=== PATIENT | female | born 1940 | race African-American/Black ===

== ENCOUNTER 2019-12-05 14:37 | Inpatient (IN) | payer MEDICARE ==
[2019-12-05] MEDS ORDERED: Maalox 30 mL Cup PO PRN (19:09)
[2019-12-05] MEDS ORDERED: Magnesium Hydroxide (MOM) 30 mL UDC PO PRN (19:09)
[2019-12-05] MEDS ORDERED: Fleet Enema 135 mL RC PRN (22:20)
[2019-12-06] MEDS: guaiFENesin 200 MG/10 ML UDC PO SCH ×4 (00:01→17:19)
[2019-12-06] MEDS: Multivitamin Tab PO SCH (09:06)
[2019-12-06] MEDS: Enoxaparin 40 mg/0.4 mL 0.4mL Syr SUBQ SCH (09:07)
[2019-12-06] MEDS: [UNRECOGNIZED DRUG - OTHER] TP SCH (09:07)
--- NOTE | 2019-12-06 18:06 | History & Physical ---
ADMIT DATE: 12/06/2019 CHIEF COMPLAINT: Medical evaluation in a patient who is admitted. HISTORY OF PRESENT ILLNESS: This is an 79-year-old female who was transferred from [facility], who apparently was having increase of agitation and refusing medications at the SNF. The patient was also recently discharged from [facility] due to status post fall and having a closed fracture of the pubic ramus. Patient is medically clear. PAST MEDICAL HISTORY: Dementia, status post fall, nondisplaced right inferior ramus fracture. ALLERGIES: No drug allergies. HOME MEDICATIONS: See medication list. FAMILY HISTORY: Noncontributory. REVIEW OF SYSTEMS: GENERAL: Denies any fevers and chills. CARDIOVASCULAR: Denies chest pain. RESPIRATORY: Denies shortness of breath. GASTROINTESTINAL: Denies nausea, vomiting, abdominal pain. GENITOURINARY: Denies increased frequency. NEUROLOGIC: No dysphagia or syncope. All other systems are reviewed. PHYSICAL EXAMINATION: EXTREMITIES: The patient is well-developed, well-nourished, awake, alert with some confusion, in no apparent distress. VITAL SIGNS: Temperature 97.6, heart rate 90, blood pressure 121/65, respirations 20, O2 98%. HEENT: Head; normocephalic, atraumatic. NECK: Supple. No mass. LUNGS: Clear bilaterally. HEART: Regular rate and rhythm. ABDOMEN: Soft, nontender. EXTREMITIES: No edema noted. ASSESSMENT: Status post recent fall with nondisplaced right inferior ramus fracture, dementia, history of falls, agitation. PLAN: Fall precautions will be initiated. Continue patient's home medications. We will continue to follow this patient. Thank you for this consultation. JOB# [id number]
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
[2019-12-07] MEDS: guaiFENesin 200 MG/10 ML UDC PO SCH ×4 (00:30→17:07)
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
[2019-12-07] MEDS: Enoxaparin 40 mg/0.4 mL 0.4mL Syr SUBQ SCH (08:24)
[2019-12-07] MEDS: Multivitamin Tab PO SCH (08:24)
[2019-12-07] MEDS: [UNRECOGNIZED DRUG - OTHER] TP SCH ×2 (10:48→17:08)
--- NOTE | 2019-12-07 12:38 | Internal Medicine Prog Note ---
Internal Medicine Subjective - Subjective Service Date: 12/07/19 Patient seen and examined:: with staff Patient is:: awake, verbal, derek chair Per staff patient has:: tolerating meds Internal Medicine Objective - Physical Exam Vitals and I&O: Vital Signs Temp 98.1 F 12/07/19 06:00 Pulse 61 12/07/19 06:00 Resp 19 12/07/19 06:00 BP 160/81 12/07/19 06:00 Pulse Ox 99 12/07/19 06:00 Intake & Output 12/06/19 12/07/19 12/07/19 18:59 06:59 18:59 Intake Total 950 300 Balance 950 300 Intake: Oral 950 300 Other: # Voids 1 # Bowel Movements 0 Active Medications: Current Medications Acetaminophen (Tylenol) 650 mg PO Q4H PRN PRN Reason: Pain (Mild 1-3) Stop: 02/03/20 19:08 Al Hydrox/Mg Hydrox/Simethicone (Maalox) 30 ml PO Q4HR PRN PRN Reason: GI DISTRESS Stop: 02/03/20 19:08 Bisacodyl (Dulcolax 10 Mg Supp) 10 mg RC Q24HR PRN PRN Reason: Constipation Stop: 02/03/20 22:19 Enoxaparin Sodium (Lovenox) 40 mg SUBQ DAILY [facility] Stop: 02/04/20 08:59 Last Admin: 12/07/19 08:24 Dose: 40 mg Guaifenesin (Robitussin) 200 mg PO Q6HR [facility] Stop: 12/09/19 00:00 Last Admin: 12/07/19 11:06 Dose: 200 mg Lorazepam (Ativan) 0.5 mg PO Q4HR PRN; Protocol PRN Reason: Anxiety Stop: 01/04/20 19:08 Magnesium Hydroxide (Milk Of Magnesia) 30 ml PO HS PRN PRN Reason: Constipation Miscellaneous (Mineral Oil/Hydrophil Petrolat [Aquaphor Healing Ointment]) 1 applic TP BID [facility] Stop: 02/04/20 08:59 Last Admin: 12/07/19 10:48 Dose: Not Given Multivitamins/Vitamin C (Theragran) 1 tab PO DAILY [facility] Stop: 02/04/20 08:59 Last Admin: 12/07/19 08:24 Dose: 1 tab Risperidone (Risperdal) 0.5 mg PO BID YAYO; Protocol Stop: 02/05/20 08:59 Last Admin: 12/07/19 08:24 Dose: 0.5 mg Sodium Phosphate (Fleet Enema) 135 ml RC Q24HR PRN PRN Reason: bowel management Stop: 02/03/20 22:19 General: alert HEENT: NC/AT, PERRLA Neck: Supple Lungs: CTAB Cardiovascular: RRR, Normal S1, Normal S2, without murmur Abdomen: soft, non-tender, non-distended Extremities: excoriation Neurological: alert Internal Medicine Assmt/Plan - Assessment Assessment: ASSESSMENT: Status post recent fall with nondisplaced right inferior ramus fracture, dementia, history of falls, agitation. - Plan Plan: PLAN: Fall precautions will be initiated. Continue patient's home medications. We will continue to follow this patient.
[2019-12-08] MEDS: guaiFENesin 200 MG/10 ML UDC PO SCH ×5 (00:22→17:02)
[2019-12-08] MEDS: Multivitamin Tab PO SCH ×2 (08:19→09:06)
[2019-12-08] MEDS: Enoxaparin 40 mg/0.4 mL 0.4mL Syr SUBQ SCH ×3 (08:20→12:13)
[2019-12-08] MEDS: [UNRECOGNIZED DRUG - OTHER] TP SCH ×2 (08:21→16:47)
--- NOTE | 2019-12-08 12:41 | Internal Medicine Prog Note ---
Internal Medicine Subjective - Subjective Patient seen and examined:: with staff, chart reviewed, other (chart reviewed) Patient is:: awake, verbal, derek chair Per staff patient has:: unstable gait, tolerating meds Internal Medicine Objective - Physical Exam Vitals and I&O: Vital Signs Temp 0 F 12/08/19 06:53 Pulse 80 12/07/19 20:32 Resp 20 12/07/19 20:32 BP 134/68 12/07/19 20:32 Pulse Ox 95 12/07/19 20:32 Intake & Output 12/07/19 12/08/19 12/08/19 18:59 06:59 18:59 Intake Total 950 240 Output Total 1 Balance 950 239 Intake: Oral 950 240 Output: Urine/Stool Mix 1 Other: # Voids 3 3 # Bowel Movements 0 0 Active Medications: Current Medications Acetaminophen (Tylenol) 650 mg PO Q4H PRN PRN Reason: Pain (Mild 1-3) Stop: 02/03/20 19:08 Al Hydrox/Mg Hydrox/Simethicone (Maalox) 30 ml PO Q4HR PRN PRN Reason: GI DISTRESS Stop: 02/03/20 19:08 Bisacodyl (Dulcolax 10 Mg Supp) 10 mg RC Q24HR PRN PRN Reason: Constipation Stop: 02/03/20 22:19 Enoxaparin Sodium (Lovenox) 40 mg SUBQ DAILY [facility] Stop: 02/04/20 08:59 Last Admin: 12/08/19 12:13 Dose: 40 mg Guaifenesin (Robitussin) 200 mg PO Q6HR [facility] Stop: 12/09/19 00:00 Last Admin: 12/08/19 11:54 Dose: Not Given Lorazepam (Ativan) 0.5 mg PO Q4HR PRN; Protocol PRN Reason: Anxiety Stop: 01/04/20 19:08 Magnesium Hydroxide (Milk Of Magnesia) 30 ml PO HS PRN PRN Reason: Constipation Miscellaneous (Mineral Oil/Hydrophil Petrolat [Aquaphor Healing Ointment]) 1 applic TP BID [facility] Stop: 02/04/20 08:59 Last Admin: 12/08/19 08:21 Dose: Not Given Multivitamins/Vitamin C (Theragran) 1 tab PO DAILY [facility] Stop: 02/04/20 08:59 Last Admin: 12/08/19 09:06 Dose: Not Given Risperidone (Risperdal) 0.5 mg PO BID [facility]O; Protocol Stop: 02/05/20 08:59 Last Admin: 12/08/19 12:12 Dose: 0.5 mg Sodium Phosphate (Fleet Enema) 135 ml RC Q24HR PRN PRN Reason: bowel management Stop: 02/03/20 22:19 General: demented HEENT: NC/AT, PERRLA Neck: Supple Lungs: CTAB Cardiovascular: RRR, Normal S1, Normal S2, without murmur Abdomen: soft, non-tender, non-distended, positive bowel sound Extremities: excoriation Neurological: alert Internal Medicine Assmt/Plan - Assessment Assessment: ASSESSMENT: Status post recent fall with nondisplaced right inferior ramus fracture, dementia, history of falls, agitation. - Plan Plan: - Plan Plan: PLAN: Fall precautions will be initiated. Continue patient's home medications. We will continue to follow this patient. [facility]
[2019-12-08 16:08] VITALS: BP 159/92
[2019-12-09] MEDS: guaiFENesin 200 MG/10 ML UDC PO SCH (00:22)
--- NOTE | 2019-12-09 03:07 | Progress Notes ---
DATE: 12/08/2019 SUBJECTIVE: The patient is currently in the Geropsych Unit, still fighting with staff, somewhat confused, history of dementia. The patient is here because of aggressive episodes, somewhat hyperreligious. Patient with good family support. Still unruly per staff. Medications were reviewed, currently on a small dose of Risperdal. We will consider dosing of Namenda. [facility]# [id number]
[2019-12-09] MEDS: Enoxaparin 40 mg/0.4 mL 0.4mL Syr SUBQ SCH (10:03)
[2019-12-09] MEDS: Multivitamin Tab PO SCH (10:03)
--- NOTE | 2019-12-09 12:59 | Internal Medicine Prog Note ---
Internal Medicine Subjective - Subjective Patient seen and examined:: with staff, chart reviewed Patient is:: awake, verbal, derek chair Per staff patient has:: unstable gait, tolerating meds Internal Medicine Objective - Physical Exam Vitals and I&O: Vital Signs Temp 0 F 12/09/19 06:39 Pulse 85 12/08/19 20:43 Resp 19 12/08/19 20:43 BP 133/81 12/08/19 20:43 Pulse Ox 95 12/08/19 20:43 Intake & Output 12/08/19 12/09/19 12/09/19 18:59 06:59 18:59 Intake Total 120 Balance 120 Intake: Oral 120 Other: # Voids 2 3 # Bowel Movements 0 0 Active Medications: Current Medications Acetaminophen (Tylenol) 650 mg PO Q4H PRN PRN Reason: Pain (Mild 1-3) Stop: 02/03/20 19:08 Al Hydrox/Mg Hydrox/Simethicone (Maalox) 30 ml PO Q4HR PRN PRN Reason: GI DISTRESS Stop: 02/03/20 19:08 Bisacodyl (Dulcolax 10 Mg Supp) 10 mg RC Q24HR PRN PRN Reason: Constipation Stop: 02/03/20 22:19 Enoxaparin Sodium (Lovenox) 40 mg SUBQ DAILY [facility] Stop: 02/04/20 08:59 Last Admin: 12/09/19 10:03 Dose: 40 mg Lorazepam (Ativan) 0.5 mg PO Q4HR PRN; Protocol PRN Reason: Anxiety Stop: 01/04/20 19:08 Magnesium Hydroxide (Milk Of Magnesia) 30 ml PO HS PRN PRN Reason: Constipation Multi-Ingredient Cream (Eucerin Cream) 1 appl TP BID [facility] Stop: 02/04/20 08:59 Multivitamins/Vitamin C (Theragran) 1 tab PO DAILY [facility] Stop: 02/04/20 08:59 Last Admin: 12/09/19 10:03 Dose: 1 tab Risperidone (Risperdal) 0.5 mg PO BID [facility]; Protocol Stop: 02/05/20 08:59 Last Admin: 12/09/19 10:03 Dose: 0.5 mg Sodium Phosphate (Fleet Enema) 135 ml RC Q24HR PRN PRN Reason: bowel management Stop: 02/03/20 22:19 General: demented HEENT: NC/AT, PERRLA Neck: Supple Lungs: CTAB Cardiovascular: RRR, Normal S1, Normal S2, without murmur Abdomen: soft, non-tender, non-distended, positive bowel sound Extremities: excoriation Neurological: alert Internal Medicine Assmt/Plan - Assessment Assessment: ASSESSMENT: Status post recent fall with nondisplaced right inferior ramus fracture, dementia, history of falls, agitation. - Plan Plan: - Plan Plan: PLAN: Fall precautions will be initiated. Continue patient's home medications. We will continue to follow this patient. fall precaution cont on [facility] meds noted Nutritional Asmnt/Malnutr-PDOC - Dietary Evaluation Malnutrition Findings (Please click <Entered> for more info): Nutritional Asmnt/Malnutrition Start: 12/08/19 13: 59 Text: Status: Complete Freq: Protocol: Document 12/08/19 13:59 HEMANT (Rec: 12/08/19 14:01 HEMANT [id number]) Nutritional Asmnt/Malnutrition Patient General Information Nutritional Screening Moderate Risk Diagnosis Psychosis Pertinent Medical Hx/Surgical Hx Dementia, Status post fall, nondisplaced RT inferior ramus fracture Subjective Information Pt is a 79-year-old female admitted on 12/05 d/t agitation and aggressiveness. Pt is eating an estimated 70% of meals Per Meal/Nutrition Activity Record. Dietary is currently providing an estimated 1700 kcals and 90 gm Pro, per Pt PO intake this is providing an estimated 1200 kcals and 60gm Pro to meet 100 % kcal and 100% Pro needs. Anthropometrics HT: 410 WT: 138 LB (62.73 kg) ABW:107 LB (48.64 kg) BMI: 28.84 (Overweight) GI/ Skin Integrity GI: WNL, Soft, non-tender BM: Not Noted I/O: 1190/1 (+1189) Skin: WNL, Intact Jamie: 21 Diet Order: Cardiac Estimated Energy Needs: ( Geriatric, ABW) 2423-5957 kcals (25-30 kcals/ kg) 50-60g Pro (1.0-1.2 g/kg) 6307-2000 ml (25-30 ml/kg) Current Diet Order/ Nutrition Support Cardiac Pertinent Medications Maalox (PRN), Dulcolax (PRN), MOM (PRN), Theragran, Fleet Enema (PRN) Pertinent Labs 12/05: BUN/Cr 24/0.84, Glucose 104, Alb 3.2 11/29: Glucose 109, BUN/Cr 24/1 .12 Nutritional Hx/Data Height 1.47 m Height (Calculated Centimeters) 147.3 Current Weight (lbs) 62.596 kg Weight (Calculated Kilograms) 62.6 Weight (Calculated Grams) 34850.7 [place] Body Weight 96 LB (43.64 kg) % [place] Body Weight 144 Body Mass Index (BMI) 28.8 Weight Status Overweight GI Symptoms Last BM Not Noted Skin Integrity/Comment: Skin: WNL, Intact Jamie: 21 Current %PO Fair (50-74%) Estimated Nutritional Goals BEE in Kcals: Adj wt of IBW Calories/Kcals/Kg 25-30 Kcals Calculated 2756-7004 Protein: Adj wt of IBW Protein g/k.0-1.2 Protein Calculated 50-60 Fluid: ml 9795-1997 ml (25-30 ml/kg) Nutritional Problem No current Nutrition Prob Problem No nutrition diagnosis at this time. Etiology N/A Signs/Symptoms: N/A Malnutrition Related to Morbid Obesity Malnutrition related to morbid obesity No Intervention/Recommendation Comments Continue Cardiac diet as tolerated. Expected Outcomes/Goals Expected Outcomes/Goals 1.PO intake to continue to meet >75% of estimated nutritional needs. 2.Monitor PO intake, wt, nutrition related labs, and skin integrity. 3.F/U as low risk in 7-10 days , 12/15-12/18
[2019-12-09] MEDS: Eucerin Cream 16 oz Jar TP SCH (18:11)
--- NOTE | 2019-12-10 08:49 | Progress Notes ---
DATE: 12/09/2019 An 79-year-old female, currently in the hospital, very confused, disoriented, good family support. Still loud sometimes aggressive, trying to grab onto people as ____, still unruly, ongoing agitation, striking out behaviors per staff. Medications were noted. PLAN: We will continue to monitor, slowly adjust and titrate medications. JOB# [id number]
[2019-12-10] MEDS: Enoxaparin 40 mg/0.4 mL 0.4mL Syr SUBQ SCH (10:00)
[2019-12-10] MEDS: Eucerin Cream 16 oz Jar TP SCH ×2 (10:00→17:57)
[2019-12-10] MEDS: Multivitamin Tab PO SCH (10:00)
--- NOTE | 2019-12-10 13:30 | Internal Medicine Prog Note ---
Internal Medicine Subjective - Subjective Patient seen and examined:: with staff, chart reviewed Patient is:: awake, verbal, derek chair Per staff patient has:: unstable gait, tolerating meds Internal Medicine Objective - Physical Exam Vitals and I&O: Vital Signs Temp 97 F 12/10/19 06:34 Pulse 70 12/10/19 06:34 Resp 18 12/10/19 06:34 BP 159/88 12/10/19 06:34 Pulse Ox 97 12/10/19 06:34 Intake & Output 12/09/19 12/10/19 12/10/19 18:59 06:59 18:59 Intake Total 120 Balance 120 Intake: Oral 120 Other: # Voids 3 Active Medications: Current Medications Acetaminophen (Tylenol) 650 mg PO Q4H PRN PRN Reason: Pain (Mild 1-3) Stop: 02/03/20 19:08 Al Hydrox/Mg Hydrox/Simethicone (Maalox) 30 ml PO Q4HR PRN PRN Reason: GI DISTRESS Stop: 02/03/20 19:08 Bisacodyl (Dulcolax 10 Mg Supp) 10 mg RC Q24HR PRN PRN Reason: Constipation Stop: 02/03/20 22:19 Enoxaparin Sodium (Lovenox) 40 mg SUBQ DAILY [facility] Stop: 02/04/20 08:59 Last Admin: 12/10/19 10:00 Dose: 40 mg Lorazepam (Ativan) 0.5 mg PO Q4HR PRN; Protocol PRN Reason: Anxiety Stop: 01/04/20 19:08 Magnesium Hydroxide (Milk Of Magnesia) 30 ml PO HS PRN PRN Reason: Constipation Multi-Ingredient Cream (Eucerin Cream) 1 appl TP BID [facility] Stop: 02/04/20 08:59 Last Admin: 12/10/19 10:00 Dose: 1 appl Multivitamins/Vitamin C (Theragran) 1 tab PO DAILY [facility] Stop: 02/04/20 08:59 Last Admin: 12/10/19 10:00 Dose: Not Given Risperidone (Risperdal) 0.5 mg PO BID [facility]; Protocol Stop: 02/05/20 08:59 Last Admin: 12/10/19 10:00 Dose: Not Given Sodium Phosphate (Fleet Enema) 135 ml RC Q24HR PRN PRN Reason: bowel management Stop: 02/03/20 22:19 General: demented HEENT: NC/AT, PERRLA Neck: Supple Lungs: CTAB Cardiovascular: RRR, Normal S1, Normal S2, without murmur Abdomen: soft, non-tender, non-distended, positive bowel sound Extremities: excoriation Neurological: alert Internal Medicine Assmt/Plan - Assessment Assessment: ASSESSMENT: Status post recent fall with nondisplaced right inferior ramus fracture, dementia, history of falls, agitation. - Plan Plan: - Plan Plan: PLAN: Fall precautions will be initiated. Continue patient's home medications. We will continue to follow this patient. [facility] Nutritional Asmnt/Malnutr-PDOC - Dietary Evaluation Malnutrition Findings (Please click <Entered> for more info): Nutritional Asmnt/Malnutrition Start: 12/08/19 13: 59 Text: Status: Complete Freq: Protocol: Document 12/08/19 13:59 HEMANT (Rec: 12/08/19 14:01 HEMANT [id number]) Nutritional Asmnt/Malnutrition Patient General Information Nutritional Screening Moderate Risk Diagnosis Psychosis Pertinent Medical Hx/Surgical Hx Dementia, Status post fall, nondisplaced RT inferior ramus fracture Subjective Information Pt is a 79-year-old female admitted on 12/05 d/t agitation and aggressiveness. Pt is eating an estimated 70% of meals Per Meal/Nutrition Activity Record. Dietary is currently providing an estimated 1700 kcals and 90 gm Pro, per Pt PO intake this is providing an estimated 1200 kcals and 60gm Pro to meet 100 % kcal and 100% Pro needs. Anthropometrics HT: 410 WT: 138 LB (62.73 kg) ABW:107 LB (48.64 kg) BMI: 28.84 (Overweight) GI/ Skin Integrity GI: WNL, Soft, non-tender BM: Not Noted I/O: 1190/1 (+1189) Skin: WNL, Intact Jamie: 21 Diet Order: Cardiac Estimated Energy Needs: ( Geriatric, ABW) 0208-4599 kcals (25-30 kcals/ kg) 50-60g Pro (1.0-1.2 g/kg) 2735-5701 ml (25-30 ml/kg) Current Diet Order/ Nutrition Support Cardiac Pertinent Medications Maalox (PRN), Dulcolax (PRN), MOM (PRN), Theragran, Fleet Enema (PRN) Pertinent Labs 12/05: BUN/Cr 24/0.84, Glucose 104, Alb 3.2 11/29: Glucose 109, BUN/Cr 24/1 .12 Nutritional Hx/Data Height 1.47 m Height (Calculated Centimeters) 147.3 Current Weight (lbs) 62.596 kg Weight (Calculated Kilograms) 62.6 Weight (Calculated Grams) 34883.7 [place] Body Weight 96 LB (43.64 kg) % [place] Body Weight 144 Body Mass Index (BMI) 28.8 Weight Status Overweight GI Symptoms Last BM Not Noted Skin Integrity/Comment: Skin: WNL, Intact Jamie: 21 Current %PO Fair (50-74%) Estimated Nutritional Goals BEE in Kcals: Adj wt of IBW Calories/Kcals/Kg 25-30 Kcals Calculated 6571-0018 Protein: Adj wt of IBW Protein g/k.0-1.2 Protein Calculated 50-60 Fluid: ml 3167-9319 ml (25-30 ml/kg) Nutritional Problem No current Nutrition Prob Problem No nutrition diagnosis at this time. Etiology N/A Signs/Symptoms: N/A Malnutrition Related to Morbid Obesity Malnutrition related to morbid obesity No Intervention/Recommendation Comments Continue Cardiac diet as tolerated. Expected Outcomes/Goals Expected Outcomes/Goals 1.PO intake to continue to meet >75% of estimated nutritional needs. 2.Monitor PO intake, wt, nutrition related labs, and skin integrity. 3.F/U as low risk in 7-10 days , 12/15-12/18
--- NOTE | 2019-12-10 22:03 | Progress Notes ---
DATE: 12/10/2019 SUBJECTIVE: The patient is still combative, agitated, fighting with staff. Ongoing concerns about her ability to be redirected, very aggressive, not taking medications. I will try to switch her over to Depakote. She may need a [place] petition. Fair sleep, sitting in Stephanie chair. Staff having a hard time controlling her behaviors. JOB# [id number]
[2019-12-11] MEDS: Eucerin Cream 16 oz Jar TP SCH ×2 (08:00→16:15)
[2019-12-11] MEDS: Multivitamin Tab PO SCH (08:59)
[2019-12-11] MEDS: Enoxaparin 40 mg/0.4 mL 0.4mL Syr SUBQ SCH (08:59)
--- NOTE | 2019-12-11 15:22 | Internal Medicine Prog Note ---
Internal Medicine Subjective - Subjective Patient seen and examined:: with staff, chart reviewed Patient is:: awake, verbal, derek chair Per staff patient has:: unstable gait, tolerating meds Internal Medicine Objective - Physical Exam Vitals and I&O: Vital Signs Temp 97.2 F 12/11/19 06:00 Pulse 87 12/11/19 06:00 Resp 16 12/11/19 08:00 BP 135/69 12/11/19 08:00 Pulse Ox 98 12/11/19 06:00 Intake & Output 12/10/19 12/11/19 12/11/19 18:59 06:59 18:59 Intake Total 120 Balance 120 Intake: Oral 120 Other: # Voids 2 # Bowel Movements 0 Active Medications: Current Medications Acetaminophen (Tylenol) 650 mg PO Q4H PRN PRN Reason: Pain (Mild 1-3) Stop: 02/03/20 19:08 Al Hydrox/Mg Hydrox/Simethicone (Maalox) 30 ml PO Q4HR PRN PRN Reason: GI DISTRESS Stop: 02/03/20 19:08 Bisacodyl (Dulcolax 10 Mg Supp) 10 mg RC Q24HR PRN PRN Reason: Constipation Stop: 02/03/20 22:19 Divalproex Sodium (Depakote Sprinkle) 250 mg PO Q12HR YAYO; Protocol Stop: 02/08/20 20:59 Last Admin: 12/11/19 08:59 Dose: 250 mg Enoxaparin Sodium (Lovenox) 40 mg SUBQ DAILY [facility] Stop: 02/04/20 08:59 Last Admin: 12/11/19 08:59 Dose: 40 mg Lorazepam (Ativan) 0.5 mg PO Q4HR PRN; Protocol PRN Reason: Anxiety Stop: 01/04/20 19:08 Magnesium Hydroxide (Milk Of Magnesia) 30 ml PO HS PRN PRN Reason: Constipation Multi-Ingredient Cream (Eucerin Cream) 1 appl TP BID [facility] Stop: 02/04/20 08:59 Last Admin: 12/10/19 17:57 Dose: Not Given Multivitamins/Vitamin C (Theragran) 1 tab PO DAILY [facility] Stop: 02/04/20 08:59 Last Admin: 12/11/19 08:59 Dose: 1 tab Sodium Phosphate (Fleet Enema) 135 ml RC Q24HR PRN PRN Reason: bowel management Stop: 02/03/20 22:19 General: demented HEENT: NC/AT, PERRLA Neck: Supple Lungs: CTAB Cardiovascular: RRR, Normal S1, Normal S2, without murmur Abdomen: soft, non-tender, non-distended, positive bowel sound Extremities: excoriation Neurological: alert Internal Medicine Assmt/Plan - Assessment Assessment: ASSESSMENT: Status post recent fall with nondisplaced right inferior ramus fracture, dementia, history of falls, agitation. - Plan Plan: - Plan Plan: PLAN: Fall precautions will be initiated. Continue patient's home medications. We will continue to follow this patient. fall precaution cont on gerichair meds noted Nutritional Asmnt/Malnutr-PDOC - Dietary Evaluation Malnutrition Findings (Please click <Entered> for more info): Nutritional Asmnt/Malnutrition Start: 12/08/19 13: 59 Text: Status: Complete Freq: Protocol: Document 12/08/19 13:59 HEMANT (Rec: 12/08/19 14:01 HEMANT [id number]) Nutritional Asmnt/Malnutrition Patient General Information Nutritional Screening Moderate Risk Diagnosis Psychosis Pertinent Medical Hx/Surgical Hx Dementia, Status post fall, nondisplaced RT inferior ramus fracture Subjective Information Pt is a 79-year-old female admitted on 12/05 d/t agitation and aggressiveness. Pt is eating an estimated 70% of meals Per Meal/Nutrition Activity Record. Dietary is currently providing an estimated 1700 kcals and 90 gm Pro, per Pt PO intake this is providing an estimated 1200 kcals and 60gm Pro to meet 100 % kcal and 100% Pro needs. Anthropometrics HT: 410 WT: 138 LB (62.73 kg) ABW:107 LB (48.64 kg) BMI: 28.84 (Overweight) GI/ Skin Integrity GI: WNL, Soft, non-tender BM: Not Noted I/O: 1190/1 (+1189) Skin: WNL, Intact Jamie: 21 Diet Order: Cardiac Estimated Energy Needs: ( Geriatric, ABW) 1096-2090 kcals (25-30 kcals/ kg) 50-60g Pro (1.0-1.2 g/kg) 6703-9858 ml (25-30 ml/kg) Current Diet Order/ Nutrition Support Cardiac Pertinent Medications Maalox (PRN), Dulcolax (PRN), MOM (PRN), Theragran, Fleet Enema (PRN) Pertinent Labs 12/05: BUN/Cr 24/0.84, Glucose 104, Alb 3.2 11/29: Glucose 109, BUN/Cr 24/1 .12 Nutritional Hx/Data Height 1.47 m Height (Calculated Centimeters) 147.3 Current Weight (lbs) 62.596 kg Weight (Calculated Kilograms) 62.6 Weight (Calculated Grams) 32771.7 [place] Body Weight 96 LB (43.64 kg) % [place] Body Weight 144 Body Mass Index (BMI) 28.8 Weight Status Overweight GI Symptoms Last BM Not Noted Skin Integrity/Comment: Skin: WNL, Intact Jamie: 21 Current %PO Fair (50-74%) Estimated Nutritional Goals BEE in Kcals: Adj wt of IBW Calories/Kcals/Kg 25-30 Kcals Calculated 7201-6156 Protein: Adj wt of IBW Protein g/k.0-1.2 Protein Calculated 50-60 Fluid: ml 8325-8415 ml (25-30 ml/kg) Nutritional Problem No current Nutrition Prob Problem No nutrition diagnosis at this time. Etiology N/A Signs/Symptoms: N/A Malnutrition Related to Morbid Obesity Malnutrition related to morbid obesity No Intervention/Recommendation Comments Continue Cardiac diet as tolerated. Expected Outcomes/Goals Expected Outcomes/Goals 1.PO intake to continue to meet >75% of estimated nutritional needs. 2.Monitor PO intake, wt, nutrition related labs, and skin integrity. 3.F/U as low risk in 7-10 days , 12/15-12/18
--- NOTE | 2019-12-11 19:58 | Progress Notes ---
DATE: 12/11/2019 SUBJECTIVE: The patient was very aggressive yesterday and agitated. I spoke with daughter. Medication adjustments will be made. The issue, the patient has not been very medication compliance, concerns about her compliance issues, refusing medications. I may need to file a [place] petition. Ongoing symptoms, very impulsive, unpredictable. She was very aggressive behaviors. JOB# [id number]
[2019-12-12] MEDS: Multivitamin Tab PO SCH (08:40)
[2019-12-12] MEDS: Enoxaparin 40 mg/0.4 mL 0.4mL Syr SUBQ SCH (08:41)
[2019-12-12] MEDS: Eucerin Cream 16 oz Jar TP SCH ×2 (09:46→16:23)
--- NOTE | 2019-12-12 13:14 | Internal Medicine Prog Note ---
Internal Medicine Subjective - Subjective Patient seen and examined:: with staff, chart reviewed Patient is:: awake, verbal, derek chair Per staff patient has:: unstable gait, tolerating meds Internal Medicine Objective - Physical Exam Vitals and I&O: Vital Signs Temp 98.7 F 12/11/19 20:24 Pulse 89 12/11/19 20:24 Resp 20 12/11/19 20:24 BP 144/66 12/11/19 20:24 Pulse Ox 97 12/11/19 20:24 Intake & Output 12/11/19 12/12/19 12/12/19 18:59 06:59 18:59 Intake Total 800 300 Output Total 1 Balance 800 299 Intake: Oral 800 300 Output: Urine/Stool Mix 1 Other: # Voids 4 1 # Bowel Movements 0 0 Active Medications: Current Medications Acetaminophen (Tylenol) 650 mg PO Q4H PRN PRN Reason: Pain (Mild 1-3) Stop: 02/03/20 19:08 Al Hydrox/Mg Hydrox/Simethicone (Maalox) 30 ml PO Q4HR PRN PRN Reason: GI DISTRESS Stop: 02/03/20 19:08 Bisacodyl (Dulcolax 10 Mg Supp) 10 mg RC Q24HR PRN PRN Reason: Constipation Stop: 02/03/20 22:19 Divalproex Sodium (Depakote Sprinkle) 250 mg PO Q12HR YAYO; Protocol Stop: 02/08/20 20:59 Last Admin: 12/12/19 08:40 Dose: 250 mg Enoxaparin Sodium (Lovenox) 40 mg SUBQ DAILY [facility] Stop: 02/04/20 08:59 Last Admin: 12/12/19 08:41 Dose: Not Given Lorazepam (Ativan) 0.5 mg PO Q4HR PRN; Protocol PRN Reason: Anxiety Stop: 01/04/20 19:08 Last Admin: 12/12/19 08:40 Dose: 0.5 mg Magnesium Hydroxide (Milk Of Magnesia) 30 ml PO HS PRN PRN Reason: Constipation Multi-Ingredient Cream (Eucerin Cream) 1 appl TP BID [facility] Stop: 02/04/20 08:59 Last Admin: 12/11/19 16:15 Dose: 1 appl Multivitamins/Vitamin C (Theragran) 1 tab PO DAILY [facility] Stop: 02/04/20 08:59 Last Admin: 12/12/19 08:40 Dose: 1 tab Sodium Phosphate (Fleet Enema) 135 ml RC Q24HR PRN PRN Reason: bowel management Stop: 02/03/20 22:19 General: demented HEENT: NC/AT, PERRLA Neck: Supple Lungs: CTAB Cardiovascular: RRR, Normal S1, Normal S2, without murmur Abdomen: soft, non-tender, non-distended, positive bowel sound Extremities: excoriation Neurological: alert Internal Medicine Assmt/Plan - Assessment Assessment: ASSESSMENT: Status post recent fall with nondisplaced right inferior ramus fracture, dementia, history of falls, agitation. - Plan Plan: - Plan Plan: PLAN: Fall precautions will be initiated. Continue patient's home medications. We will continue to follow this patient. fall precaution cont on gerichair meds noted Nutritional Asmnt/Malnutr-PDOC - Dietary Evaluation Malnutrition Findings (Please click <Entered> for more info): Nutritional Asmnt/Malnutrition Start: 12/08/19 13: 59 Text: Status: Complete Freq: Protocol: Document 12/08/19 13:59 HEMANT (Rec: 12/08/19 14:01 HEMANT [id number]) Nutritional Asmnt/Malnutrition Patient General Information Nutritional Screening Moderate Risk Diagnosis Psychosis Pertinent Medical Hx/Surgical Hx Dementia, Status post fall, nondisplaced RT inferior ramus fracture Subjective Information Pt is a 79-year-old female admitted on 12/05 d/t agitation and aggressiveness. Pt is eating an estimated 70% of meals Per Meal/Nutrition Activity Record. Dietary is currently providing an estimated 1700 kcals and 90 gm Pro, per Pt PO intake this is providing an estimated 1200 kcals and 60gm Pro to meet 100 % kcal and 100% Pro needs. Anthropometrics HT: 410 WT: 138 LB (62.73 kg) ABW:107 LB (48.64 kg) BMI: 28.84 (Overweight) GI/ Skin Integrity GI: WNL, Soft, non-tender BM: Not Noted I/O: 1190/1 (+1189) Skin: WNL, Intact Jamie: 21 Diet Order: Cardiac Estimated Energy Needs: ( Geriatric, ABW) 5763-3777 kcals (25-30 kcals/ kg) 50-60g Pro (1.0-1.2 g/kg) 5507-8578 ml (25-30 ml/kg) Current Diet Order/ Nutrition Support Cardiac Pertinent Medications Maalox (PRN), Dulcolax (PRN), MOM (PRN), Theragran, Fleet Enema (PRN) Pertinent Labs 12/05: BUN/Cr 24/0.84, Glucose 104, Alb 3.2 11/29: Glucose 109, BUN/Cr 24/1 .12 Nutritional Hx/Data Height 1.47 m Height (Calculated Centimeters) 147.3 Current Weight (lbs) 62.596 kg Weight (Calculated Kilograms) 62.6 Weight (Calculated Grams) 87710.7 [place] Body Weight 96 LB (43.64 kg) % [place] Body Weight 144 Body Mass Index (BMI) 28.8 Weight Status Overweight GI Symptoms Last BM Not Noted Skin Integrity/Comment: Skin: WNL, Intact Jamie: 21 Current %PO Fair (50-74%) Estimated Nutritional Goals BEE in Kcals: Adj wt of IBW Calories/Kcals/Kg 25-30 Kcals Calculated 6646-6092 Protein: Adj wt of IBW Protein g/k.0-1.2 Protein Calculated 50-60 Fluid: ml 2696-4478 ml (25-30 ml/kg) Nutritional Problem No current Nutrition Prob Problem No nutrition diagnosis at this time. Etiology N/A Signs/Symptoms: N/A Malnutrition Related to Morbid Obesity Malnutrition related to morbid obesity No Intervention/Recommendation Comments Continue Cardiac diet as tolerated. Expected Outcomes/Goals Expected Outcomes/Goals 1.PO intake to continue to meet >75% of estimated nutritional needs. 2.Monitor PO intake, wt, nutrition related labs, and skin integrity. 3.F/U as low risk in 7-10 days , 12/15-12/18
--- NOTE | 2019-12-12 22:32 | Progress Notes ---
DATE: 12/12/2019 SUBJECTIVE: The patient is impulsive, unpredictable, still becomes combative, aggressive, very confused, disoriented, poor medication compliance, ongoing safety concerns. The patient has been aggressive towards staff. Currently awaiting a [place] hearing on Sunday. JOB# [id number]
[2019-12-13] MEDS: Eucerin Cream 16 oz Jar TP SCH ×2 (09:20→17:00)
[2019-12-13] MEDS: Enoxaparin 40 mg/0.4 mL 0.4mL Syr SUBQ SCH (09:20)
[2019-12-13] MEDS: Multivitamin Tab PO SCH (09:21)
--- NOTE | 2019-12-13 09:57 | Internal Medicine Prog Note ---
Internal Medicine Subjective - Subjective Patient seen and examined:: with staff, chart reviewed Patient is:: awake, verbal, derek chair Per staff patient has:: unstable gait, tolerating meds Internal Medicine Objective - Physical Exam Vitals and I&O: Vital Signs Temp 98.1 F 12/12/19 20:25 Pulse 81 12/12/19 20:25 Resp 16 12/13/19 08:00 BP 148/77 12/12/19 20:25 Pulse Ox 97 12/12/19 20:25 Intake & Output 12/12/19 12/13/19 12/13/19 18:59 06:59 18:59 Intake Total 1200 480 Output Total 2 Balance 1200 478 Intake: Oral 1200 480 Output: Urine/Stool Mix 2 Other: # Voids 1 # Bowel Movements 1 Active Medications: Current Medications Acetaminophen (Tylenol) 650 mg PO Q4H PRN PRN Reason: Pain (Mild 1-3) Stop: 02/03/20 19:08 Al Hydrox/Mg Hydrox/Simethicone (Maalox) 30 ml PO Q4HR PRN PRN Reason: GI DISTRESS Stop: 02/03/20 19:08 Bisacodyl (Dulcolax 10 Mg Supp) 10 mg RC Q24HR PRN PRN Reason: Constipation Stop: 02/03/20 22:19 Divalproex Sodium (Depakote Sprinkle) 250 mg PO Q12HR YAYO; Protocol Stop: 02/08/20 20:59 Last Admin: 12/13/19 09:21 Dose: 250 mg Enoxaparin Sodium (Lovenox) 40 mg SUBQ DAILY [facility] Stop: 02/04/20 08:59 Last Admin: 12/13/19 09:20 Dose: 40 mg Lorazepam (Ativan) 0.5 mg PO Q4HR PRN; Protocol PRN Reason: Anxiety Stop: 01/04/20 19:08 Last Admin: 12/12/19 08:40 Dose: 0.5 mg Magnesium Hydroxide (Milk Of Magnesia) 30 ml PO HS PRN PRN Reason: Constipation Multi-Ingredient Cream (Eucerin Cream) 1 appl TP BID [facility] Stop: 02/04/20 08:59 Last Admin: 12/13/19 09:20 Dose: 1 appl Multivitamins/Vitamin C (Theragran) 1 tab PO DAILY [facility] Stop: 02/04/20 08:59 Last Admin: 12/13/19 09:21 Dose: 1 tab Sodium Phosphate (Fleet Enema) 135 ml RC Q24HR PRN PRN Reason: bowel management Stop: 02/03/20 22:19 General: demented HEENT: NC/AT, PERRLA Neck: Supple Lungs: CTAB Cardiovascular: RRR, Normal S1, Normal S2, without murmur Abdomen: soft, non-tender, non-distended, positive bowel sound Extremities: excoriation Neurological: alert Internal Medicine Assmt/Plan - Assessment Assessment: ASSESSMENT: Status post recent fall with nondisplaced right inferior ramus fracture, dementia, history of falls, agitation. - Plan Plan: - Plan Plan: PLAN: Fall precautions will be initiated. Continue patient's home medications. We will continue to follow this patient. fall precaution cont on gerichair meds noted Nutritional Asmnt/Malnutr-PDOC - Dietary Evaluation Malnutrition Findings (Please click <Entered> for more info): Nutritional Asmnt/Malnutrition Start: 12/08/19 13: 59 Text: Status: Complete Freq: Protocol: Document 12/08/19 13:59 HEMANT (Rec: 12/08/19 14:01 HEMANT [id number]) Nutritional Asmnt/Malnutrition Patient General Information Nutritional Screening Moderate Risk Diagnosis Psychosis Pertinent Medical Hx/Surgical Hx Dementia, Status post fall, nondisplaced RT inferior ramus fracture Subjective Information Pt is a 79-year-old female admitted on 12/05 d/t agitation and aggressiveness. Pt is eating an estimated 70% of meals Per Meal/Nutrition Activity Record. Dietary is currently providing an estimated 1700 kcals and 90 gm Pro, per Pt PO intake this is providing an estimated 1200 kcals and 60gm Pro to meet 100 % kcal and 100% Pro needs. Anthropometrics HT: 410 WT: 138 LB (62.73 kg) ABW:107 LB (48.64 kg) BMI: 28.84 (Overweight) GI/ Skin Integrity GI: WNL, Soft, non-tender BM: Not Noted I/O: 1190/1 (+1189) Skin: WNL, Intact Jamie: 21 Diet Order: Cardiac Estimated Energy Needs: ( Geriatric, ABW) 1413-1469 kcals (25-30 kcals/ kg) 50-60g Pro (1.0-1.2 g/kg) 4250-9670 ml (25-30 ml/kg) Current Diet Order/ Nutrition Support Cardiac Pertinent Medications Maalox (PRN), Dulcolax (PRN), MOM (PRN), Theragran, Fleet Enema (PRN) Pertinent Labs 12/05: BUN/Cr 24/0.84, Glucose 104, Alb 3.2 11/29: Glucose 109, BUN/Cr 24/1 .12 Nutritional Hx/Data Height 1.47 m Height (Calculated Centimeters) 147.3 Current Weight (lbs) 62.596 kg Weight (Calculated Kilograms) 62.6 Weight (Calculated Grams) 40977.7 [place] Body Weight 96 LB (43.64 kg) % [place] Body Weight 144 Body Mass Index (BMI) 28.8 Weight Status Overweight GI Symptoms Last BM Not Noted Skin Integrity/Comment: Skin: WNL, Intact Jamie: 21 Current %PO Fair (50-74%) Estimated Nutritional Goals BEE in Kcals: Adj wt of IBW Calories/Kcals/Kg 25-30 Kcals Calculated 0063-2516 Protein: Adj wt of IBW Protein g/k.0-1.2 Protein Calculated 50-60 Fluid: ml 7998-1641 ml (25-30 ml/kg) Nutritional Problem No current Nutrition Prob Problem No nutrition diagnosis at this time. Etiology N/A Signs/Symptoms: N/A Malnutrition Related to Morbid Obesity Malnutrition related to morbid obesity No Intervention/Recommendation Comments Continue Cardiac diet as tolerated. Expected Outcomes/Goals Expected Outcomes/Goals 1.PO intake to continue to meet >75% of estimated nutritional needs. 2.Monitor PO intake, wt, nutrition related labs, and skin integrity. 3.F/U as low risk in 7-10 days , 12/15-12/18
--- NOTE | 2019-12-13 20:50 | Progress Notes ---
DATE: 12/13/2019 SUBJECTIVE: The patient was seen and evaluated. The patient's chart reviewed. Covering for Dr. Bradley. IDENTIFYING DATA: An 79-year-old female with a history of dementia, possible history of bipolar and schizophrenia, presenting very disorganized, grandiose at bedside. The patient's daughter reported the current medication adjustments. They have noted her to be slightly more calm. Nursing staff reported the patient continues to be very combative, aggressive, confused. ASSESSMENT AND PLAN: Still continues to be disorganized and awaiting [place] hearing on Sunday to transition to long-acting injectable due to the patient's history of noncompliance that results into aggressive behavior. JOB# [id number]
[2019-12-14] MEDS: Enoxaparin 40 mg/0.4 mL 0.4mL Syr SUBQ SCH (09:07)
[2019-12-14] MEDS: Multivitamin Tab PO SCH (09:07)
[2019-12-14] MEDS: Eucerin Cream 16 oz Jar TP SCH ×2 (09:08→16:33)
--- NOTE | 2019-12-14 19:18 | Internal Medicine Prog Note ---
Internal Medicine Subjective - Subjective Patient seen and examined:: with staff, chart reviewed Patient is:: awake, verbal, derek chair Per staff patient has:: unstable gait, tolerating meds Internal Medicine Objective - Physical Exam Vitals and I&O: Vital Signs Temp 98.4 F 12/14/19 14:00 Pulse 74 12/14/19 14:00 Resp 18 12/14/19 14:00 BP 131/61 12/14/19 14:00 Pulse Ox 96 12/14/19 14:00 Intake & Output 12/14/19 12/14/19 12/15/19 06:59 18:59 06:59 Intake Total 240 650 Balance 240 650 Intake: Oral 240 650 Other: # Voids 1 Active Medications: Current Medications Acetaminophen (Tylenol) 650 mg PO Q4H PRN PRN Reason: Pain (Mild 1-3) Stop: 02/03/20 19:08 Al Hydrox/Mg Hydrox/Simethicone (Maalox) 30 ml PO Q4HR PRN PRN Reason: GI DISTRESS Stop: 02/03/20 19:08 Bisacodyl (Dulcolax 10 Mg Supp) 10 mg RC Q24HR PRN PRN Reason: Constipation Stop: 02/03/20 22:19 Divalproex Sodium (Depakote Sprinkle) 250 mg PO Q12HR YAYO; Protocol Stop: 02/08/20 20:59 Last Admin: 12/14/19 09:07 Dose: 250 mg Enoxaparin Sodium (Lovenox) 40 mg SUBQ DAILY [facility] Stop: 02/04/20 08:59 Last Admin: 12/14/19 09:07 Dose: Not Given Lorazepam (Ativan) 0.5 mg PO Q4HR PRN; Protocol PRN Reason: Anxiety Stop: 01/04/20 19:08 Last Admin: 12/13/19 11:32 Dose: 0.5 mg Magnesium Hydroxide (Milk Of Magnesia) 30 ml PO HS PRN PRN Reason: Constipation Multi-Ingredient Cream (Eucerin Cream) 1 appl TP BID [facility] Stop: 02/04/20 08:59 Last Admin: 12/14/19 16:33 Dose: 1 appl Multivitamins/Vitamin C (Theragran) 1 tab PO DAILY [facility] Stop: 02/04/20 08:59 Last Admin: 02/09/20 09:07 Dose: 1 tab Sodium Phosphate (Fleet Enema) 135 ml RC Q24HR PRN PRN Reason: bowel management Stop: 02/03/20 22:19 General: demented HEENT: NC/AT, PERRLA Neck: Supple Lungs: CTAB Cardiovascular: RRR, Normal S1, Normal S2, without murmur Abdomen: soft, non-tender, non-distended, positive bowel sound Extremities: excoriation Neurological: alert Internal Medicine Assmt/Plan - Assessment Assessment: ASSESSMENT: Status post recent fall with nondisplaced right inferior ramus fracture, dementia, history of falls, agitation. - Plan Plan: - Plan Plan: PLAN: Fall precautions will be initiated. Continue patient's home medications. We will continue to follow this patient. [facility] Nutritional Asmnt/Malnutr-PDOC - Dietary Evaluation Malnutrition Findings (Please click <Entered> for more info): Nutritional Asmnt/Malnutrition Start: 12/08/19 13: 59 Text: Status: Complete Freq: Protocol: Document 12/08/19 13:59 HEMANT (Rec: 12/08/19 14:01 HEMANT [id number]) Nutritional Asmnt/Malnutrition Patient General Information Nutritional Screening Moderate Risk Diagnosis Psychosis Pertinent Medical Hx/Surgical Hx Dementia, Status post fall, nondisplaced RT inferior ramus fracture Subjective Information Pt is a 79-year-old female admitted on 12/05 d/t agitation and aggressiveness. Pt is eating an estimated 70% of meals Per Meal/Nutrition Activity Record. Dietary is currently providing an estimated 1700 kcals and 90 gm Pro, per Pt PO intake this is providing an estimated 1200 kcals and 60gm Pro to meet 100 % kcal and 100% Pro needs. Anthropometrics HT: 410 WT: 138 LB (62.73 kg) ABW:107 LB (48.64 kg) BMI: 28.84 (Overweight) GI/ Skin Integrity GI: WNL, Soft, non-tender BM: Not Noted I/O: 1190/1 (+1189) Skin: WNL, Intact Jamie: 21 Diet Order: Cardiac Estimated Energy Needs: ( Geriatric, ABW) 6827-7206 kcals (25-30 kcals/ kg) 50-60g Pro (1.0-1.2 g/kg) 8865-1509 ml (25-30 ml/kg) Current Diet Order/ Nutrition Support Cardiac Pertinent Medications Maalox (PRN), Dulcolax (PRN), MOM (PRN), Theragran, Fleet Enema (PRN) Pertinent Labs 12/05: BUN/Cr 24/0.84, Glucose 104, Alb 3.2 11/29: Glucose 109, BUN/Cr 24/1 .12 Nutritional Hx/Data Height 1.47 m Height (Calculated Centimeters) 147.3 Current Weight (lbs) 62.596 kg Weight (Calculated Kilograms) 62.6 Weight (Calculated Grams) 23813.7 [place] Body Weight 96 LB (43.64 kg) % [place] Body Weight 144 Body Mass Index (BMI) 28.8 Weight Status Overweight GI Symptoms Last BM Not Noted Skin Integrity/Comment: Skin: WNL, Intact Jamie: 21 Current %PO Fair (50-74%) Estimated Nutritional Goals BEE in Kcals: Adj wt of IBW Calories/Kcals/Kg 25-30 Kcals Calculated 2821-6826 Protein: Adj wt of IBW Protein g/k.0-1.2 Protein Calculated 50-60 Fluid: ml 9891-8722 ml (25-30 ml/kg) Nutritional Problem No current Nutrition Prob Problem No nutrition diagnosis at this time. Etiology N/A Signs/Symptoms: N/A Malnutrition Related to Morbid Obesity Malnutrition related to morbid obesity No Intervention/Recommendation Comments Continue Cardiac diet as tolerated. Expected Outcomes/Goals Expected Outcomes/Goals 1.PO intake to continue to meet >75% of estimated nutritional needs. 2.Monitor PO intake, wt, nutrition related labs, and skin integrity. 3.F/U as low risk in 7-10 days , 12/15-12/18
--- NOTE | 2019-12-15 01:59 | Progress Notes ---
DATE: SUBJECTIVE: Today on [id number]-[id number] evaluation, slightly disorganized, could not elaborate why she is here, derails, needs a lot of conversation. MENTAL STATUS EXAMINATION: Easily disorganized, derails. ASSESSMENT AND PLAN: Disorganized, needing a lot of redirection. She continues to intermittently refuse medications. [place] pending tomorrow. JOB# [id number]
[2019-12-15] MEDS: Multivitamin Tab PO SCH (09:58)
[2019-12-15] MEDS: Eucerin Cream 16 oz Jar TP SCH ×2 (09:58→17:24)
[2019-12-15] MEDS: Enoxaparin 40 mg/0.4 mL 0.4mL Syr SUBQ SCH (09:58)
--- NOTE | 2019-12-15 12:58 | Internal Medicine Prog Note ---
Internal Medicine Subjective - Subjective Patient seen and examined:: with staff, chart reviewed Patient is:: awake, verbal, derek chair Per staff patient has:: unstable gait, tolerating meds Internal Medicine Objective - Physical Exam Vitals and I&O: Vital Signs Temp 97.6 F 12/15/19 05:23 Pulse 79 12/15/19 05:23 Resp 20 12/15/19 08:00 BP 157/83 12/15/19 05:23 Pulse Ox 99 12/15/19 05:23 Intake & Output 12/14/19 12/15/19 12/15/19 18:59 06:59 18:59 Intake Total 650 240 Balance 650 240 Intake: Oral 650 240 Other: # Voids 3 # Bowel Movements 0 Active Medications: Current Medications Acetaminophen (Tylenol) 650 mg PO Q4H PRN PRN Reason: Pain (Mild 1-3) Stop: 02/03/20 19:08 Al Hydrox/Mg Hydrox/Simethicone (Maalox) 30 ml PO Q4HR PRN PRN Reason: GI DISTRESS Stop: 02/03/20 19:08 Bisacodyl (Dulcolax 10 Mg Supp) 10 mg RC Q24HR PRN PRN Reason: Constipation Stop: 02/03/20 22:19 Divalproex Sodium (Depakote Sprinkle) 250 mg PO Q12HR YAYO; Protocol Stop: 02/08/20 20:59 Last Admin: 12/15/19 09:58 Dose: 250 mg Enoxaparin Sodium (Lovenox) 40 mg SUBQ DAILY ON LICENSE OF [facility] Stop: 02/04/20 08:59 Last Admin: 12/15/19 09:58 Dose: 40 mg Lorazepam (Ativan) 0.5 mg PO Q4HR PRN; Protocol PRN Reason: Anxiety Stop: 01/04/20 19:08 Last Admin: 12/15/19 05:22 Dose: 0.5 mg Magnesium Hydroxide (Milk Of Magnesia) 30 ml PO HS PRN PRN Reason: Constipation Multi-Ingredient Cream (Eucerin Cream) 1 appl TP BID ON LICENSE OF [facility] Stop: 02/04/20 08:59 Last Admin: 12/15/19 09:58 Dose: 1 appl Multivitamins/Vitamin C (Theragran) 1 tab PO DAILY ON LICENSE OF [facility] Stop: 02/04/20 08:59 Last Admin: 12/15/19 09:58 Dose: 1 tab Sodium Phosphate (Fleet Enema) 135 ml RC Q24HR PRN PRN Reason: bowel management Stop: 02/03/20 22:19 General: demented HEENT: NC/AT, PERRLA Neck: Supple Lungs: CTAB Cardiovascular: RRR, Normal S1, Normal S2, without murmur Abdomen: soft, non-tender, non-distended, positive bowel sound Extremities: excoriation Neurological: alert Internal Medicine Assmt/Plan - Assessment Assessment: ASSESSMENT: Status post recent fall with nondisplaced right inferior ramus fracture, dementia, history of falls, agitation. - Plan Plan: - Plan Plan: PLAN: Fall precautions will be initiated. Continue patient's home medications. We will continue to follow this patient. fall precaution cont on [facility] meds noted Nutritional Asmnt/Malnutr-PDOC - Dietary Evaluation Malnutrition Findings (Please click <Entered> for more info): Nutritional Asmnt/Malnutrition Start: 12/08/19 13: 59 Text: Status: Complete Freq: Protocol: Document 12/08/19 13:59 HEMANT (Rec: 12/08/19 14:01 HEMANT [id number]) Nutritional Asmnt/Malnutrition Patient General Information Nutritional Screening Moderate Risk Diagnosis Psychosis Pertinent Medical Hx/Surgical Hx Dementia, Status post fall, nondisplaced RT inferior ramus fracture Subjective Information Pt is a 79-year-old female admitted on 12/05 d/t agitation and aggressiveness. Pt is eating an estimated 70% of meals Per Meal/Nutrition Activity Record. Dietary is currently providing an estimated 1700 kcals and 90 gm Pro, per Pt PO intake this is providing an estimated 1200 kcals and 60gm Pro to meet 100 % kcal and 100% Pro needs. Anthropometrics HT: 410 WT: 138 LB (62.73 kg) ABW:107 LB (48.64 kg) BMI: 28.84 (Overweight) GI/ Skin Integrity GI: WNL, Soft, non-tender BM: Not Noted I/O: 1190/1 (+1189) Skin: WNL, Intact Jamie: 21 Diet Order: Cardiac Estimated Energy Needs: ( Geriatric, ABW) 7052-6824 kcals (25-30 kcals/ kg) 50-60g Pro (1.0-1.2 g/kg) 5135-8488 ml (25-30 ml/kg) Current Diet Order/ Nutrition Support Cardiac Pertinent Medications Maalox (PRN), Dulcolax (PRN), MOM (PRN), Theragran, Fleet Enema (PRN) Pertinent Labs 12/05: BUN/Cr 24/0.84, Glucose 104, Alb 3.2 11/29: Glucose 109, BUN/Cr 24/1 .12 Nutritional Hx/Data Height 1.47 m Height (Calculated Centimeters) 147.3 Current Weight (lbs) 62.596 kg Weight (Calculated Kilograms) 62.6 Weight (Calculated Grams) 77290.7 [place] Body Weight 96 LB (43.64 kg) % [place] Body Weight 144 Body Mass Index (BMI) 28.8 Weight Status Overweight GI Symptoms Last BM Not Noted Skin Integrity/Comment: Skin: WNL, Intact Jamie: 21 Current %PO Fair (50-74%) Estimated Nutritional Goals BEE in Kcals: Adj wt of IBW Calories/Kcals/Kg 25-30 Kcals Calculated 4211-7976 Protein: Adj wt of IBW Protein g/k.0-1.2 Protein Calculated 50-60 Fluid: ml 8366-3678 ml (25-30 ml/kg) Nutritional Problem No current Nutrition Prob Problem No nutrition diagnosis at this time. Etiology N/A Signs/Symptoms: N/A Malnutrition Related to Morbid Obesity Malnutrition related to morbid obesity No Intervention/Recommendation Comments Continue Cardiac diet as tolerated. Expected Outcomes/Goals Expected Outcomes/Goals 1.PO intake to continue to meet >75% of estimated nutritional needs. 2.Monitor PO intake, wt, nutrition related labs, and skin integrity. 3.F/U as low risk in 7-10 days , 12/15-12/18
--- NOTE | 2019-12-16 00:46 | Progress Notes ---
DATE: 12/15/2019 SUBJECTIVE: The patient is confused, disoriented, refusing medications at times, stating she is not refusing medications, talking with the flavor of the medications, does not know where she is or what is going on. Still can be very aggressive, violent, agitated. PLAN: We will continue to monitor. [place] hearing today. JOB# [id number]
[2019-12-16] MEDS: Enoxaparin 40 mg/0.4 mL 0.4mL Syr SUBQ SCH (09:48)
[2019-12-16] MEDS: Eucerin Cream 16 oz Jar TP SCH ×2 (09:48→16:32)
[2019-12-16] MEDS: Multivitamin Tab PO SCH (09:48)
--- NOTE | 2019-12-16 13:06 | Internal Medicine Prog Note ---
Internal Medicine Subjective - Subjective Patient seen and examined:: with staff, chart reviewed Patient is:: awake, verbal, derek chair Per staff patient has:: unstable gait, tolerating meds Internal Medicine Objective - Physical Exam Vitals and I&O: Vital Signs Temp 97.3 F 12/16/19 06:25 Pulse 89 12/16/19 06:25 Resp 20 12/16/19 08:00 BP 167/76 12/16/19 06:25 Pulse Ox 98 12/16/19 06:25 Intake & Output 12/15/19 12/16/19 12/16/19 18:59 06:59 18:59 Intake Total 960 280 Balance 960 280 Intake: Oral 960 280 Other: # Voids 4 4 # Bowel Movements 0 0 Active Medications: Current Medications Acetaminophen (Tylenol) 650 mg PO Q4H PRN PRN Reason: Pain (Mild 1-3) Stop: 02/03/20 19:08 Al Hydrox/Mg Hydrox/Simethicone (Maalox) 30 ml PO Q4HR PRN PRN Reason: GI DISTRESS Stop: 02/03/20 19:08 Bisacodyl (Dulcolax 10 Mg Supp) 10 mg RC Q24HR PRN PRN Reason: Constipation Stop: 02/03/20 22:19 Divalproex Sodium (Depakote Sprinkle) 250 mg PO Q12HR YAYO; Protocol Stop: 02/08/20 20:59 Last Admin: 12/16/19 09:48 Dose: 250 mg Enoxaparin Sodium (Lovenox) 40 mg SUBQ DAILY [facility] Stop: 02/04/20 08:59 Last Admin: 12/16/19 09:48 Dose: 40 mg Lorazepam (Ativan) 0.5 mg PO Q4HR PRN; Protocol PRN Reason: Anxiety Stop: 01/04/20 19:08 Last Admin: 12/15/19 21:01 Dose: 0.5 mg Magnesium Hydroxide (Milk Of Magnesia) 30 ml PO HS PRN PRN Reason: Constipation Multi-Ingredient Cream (Eucerin Cream) 1 appl TP BID [facility] Stop: 02/04/20 08:59 Last Admin: 12/16/19 09:48 Dose: 1 appl Multivitamins/Vitamin C (Theragran) 1 tab PO DAILY [facility] Stop: 02/04/20 08:59 Last Admin: 12/16/19 09:48 Dose: 1 tab Sodium Phosphate (Fleet Enema) 135 ml RC Q24HR PRN PRN Reason: bowel management Stop: 02/03/20 22:19 General: demented HEENT: NC/AT, PERRLA Neck: Supple Lungs: CTAB Cardiovascular: RRR, Normal S1, Normal S2, without murmur Abdomen: soft, non-tender, non-distended, positive bowel sound Extremities: excoriation Neurological: alert Internal Medicine Assmt/Plan - Assessment Assessment: ASSESSMENT: Status post recent fall with nondisplaced right inferior ramus fracture, dementia, history of falls, agitation. - Plan Plan: - Plan Plan: PLAN: Fall precautions will be initiated. Continue patient's home medications. We will continue to follow this patient. fall precaution cont on [facility]ichair meds noted Nutritional Asmnt/Malnutr-PDOC - Dietary Evaluation Malnutrition Findings (Please click <Entered> for more info): Nutritional Asmnt/Malnutrition Start: 12/08/19 13: 59 Text: Status: Complete Freq: Protocol: Document 12/08/19 13:59 HEMANT (Rec: 12/08/19 14:01 HEMANT [id number]) Nutritional Asmnt/Malnutrition Patient General Information Nutritional Screening Moderate Risk Diagnosis Psychosis Pertinent Medical Hx/Surgical Hx Dementia, Status post fall, nondisplaced RT inferior ramus fracture Subjective Information Pt is a 79-year-old female admitted on 12/05 d/t agitation and aggressiveness. Pt is eating an estimated 70% of meals Per Meal/Nutrition Activity Record. Dietary is currently providing an estimated 1700 kcals and 90 gm Pro, per Pt PO intake this is providing an estimated 1200 kcals and 60gm Pro to meet 100 % kcal and 100% Pro needs. Anthropometrics HT: 410 WT: 138 LB (62.73 kg) ABW:107 LB (48.64 kg) BMI: 28.84 (Overweight) GI/ Skin Integrity GI: WNL, Soft, non-tender BM: Not Noted I/O: 1190/1 (+1189) Skin: WNL, Intact Jamie: 21 Diet Order: Cardiac Estimated Energy Needs: ( Geriatric, ABW) 8079-1286 kcals (25-30 kcals/ kg) 50-60g Pro (1.0-1.2 g/kg) 7106-7505 ml (25-30 ml/kg) Current Diet Order/ Nutrition Support Cardiac Pertinent Medications Maalox (PRN), Dulcolax (PRN), MOM (PRN), Theragran, Fleet Enema (PRN) Pertinent Labs 12/05: BUN/Cr 24/0.84, Glucose 104, Alb 3.2 11/29: Glucose 109, BUN/Cr 24/1 .12 Nutritional Hx/Data Height 1.47 m Height (Calculated Centimeters) 147.3 Current Weight (lbs) 62.596 kg Weight (Calculated Kilograms) 62.6 Weight (Calculated Grams) 02721.7 [place] Body Weight 96 LB (43.64 kg) % [place] Body Weight 144 Body Mass Index (BMI) 28.8 Weight Status Overweight GI Symptoms Last BM Not Noted Skin Integrity/Comment: Skin: WNL, Intact Jamie: 21 Current %PO Fair (50-74%) Estimated Nutritional Goals BEE in Kcals: Adj wt of IBW Calories/Kcals/Kg 25-30 Kcals Calculated 4121-8683 Protein: Adj wt of IBW Protein g/k.0-1.2 Protein Calculated 50-60 Fluid: ml 0747-0334 ml (25-30 ml/kg) Nutritional Problem No current Nutrition Prob Problem No nutrition diagnosis at this time. Etiology N/A Signs/Symptoms: N/A Malnutrition Related to Morbid Obesity Malnutrition related to morbid obesity No Intervention/Recommendation Comments Continue Cardiac diet as tolerated. Expected Outcomes/Goals Expected Outcomes/Goals 1.PO intake to continue to meet >75% of estimated nutritional needs. 2.Monitor PO intake, wt, nutrition related labs, and skin integrity. 3.F/U as low risk in 7-10 days , 12/15-12/18
--- NOTE | 2019-12-16 23:12 | Progress Notes ---
DATE: 12/16/2019 SUBJECTIVE: The patient remains confused, disoriented, Riese was not upheld. Still requiring a lot of prompting, redirection. Currently on dosing of Depakote. She is not as aggressive. Generally calmer, more cooperative, still in a Stephanie chair. JOB# [id number]
[2019-12-17] MEDS: Multivitamin Tab PO SCH (08:28)
[2019-12-17] MEDS: Eucerin Cream 16 oz Jar TP SCH ×2 (08:30→16:55)
[2019-12-17] MEDS: Enoxaparin 40 mg/0.4 mL 0.4mL Syr SUBQ SCH (08:30)
--- NOTE | 2019-12-17 13:20 | Internal Medicine Prog Note ---
Internal Medicine Subjective - Subjective Patient seen and examined:: with staff, chart reviewed Patient is:: awake, verbal, derek chair Per staff patient has:: unstable gait, tolerating meds Internal Medicine Objective - Physical Exam Vitals and I&O: Vital Signs Temp 97.8 F 12/17/19 06:38 Pulse 92 12/17/19 06:38 Resp 18 12/17/19 08:00 BP 158/89 12/17/19 06:38 Pulse Ox 97 12/17/19 06:38 Intake & Output 12/16/19 12/17/19 12/17/19 18:59 06:59 18:59 Intake Total 500 540 Balance 500 540 Intake: Oral 500 540 Other: # Voids 3 # Bowel Movements 1 0 Active Medications: Current Medications Acetaminophen (Tylenol) 650 mg PO Q4H PRN PRN Reason: Pain (Mild 1-3) Stop: 02/03/20 19:08 Al Hydrox/Mg Hydrox/Simethicone (Maalox) 30 ml PO Q4HR PRN PRN Reason: GI DISTRESS Stop: 02/03/20 19:08 Bisacodyl (Dulcolax 10 Mg Supp) 10 mg RC Q24HR PRN PRN Reason: Constipation Stop: 02/03/20 22:19 Divalproex Sodium (Depakote Sprinkle) 250 mg PO Q12HR YAYO; Protocol Stop: 02/08/20 20:59 Last Admin: 12/17/19 08:28 Dose: 250 mg Enoxaparin Sodium (Lovenox) 40 mg SUBQ DAILY YAYO Stop: 02/04/20 08:59 Last Admin: 12/17/19 08:30 Dose: 40 mg Lorazepam (Ativan) 0.5 mg PO Q4HR PRN; Protocol PRN Reason: Anxiety Stop: 01/04/20 19:08 Last Admin: 12/17/19 01:22 Dose: 0.5 mg Magnesium Hydroxide (Milk Of Magnesia) 30 ml PO HS PRN PRN Reason: Constipation Multi-Ingredient Cream (Eucerin Cream) 1 appl TP BID [facility] Stop: 02/04/20 08:59 Last Admin: 12/17/19 08:30 Dose: 1 appl Multivitamins/Vitamin C (Theragran) 1 tab PO DAILY [facility] Stop: 02/04/20 08:59 Last Admin: 12/17/19 08:28 Dose: 1 tab Sodium Phosphate (Fleet Enema) 135 ml RC Q24HR PRN PRN Reason: bowel management Stop: 02/03/20 22:19 General: demented HEENT: NC/AT, PERRLA Neck: Supple Lungs: CTAB Cardiovascular: RRR, Normal S1, Normal S2, without murmur Abdomen: soft, non-tender, non-distended, positive bowel sound Extremities: excoriation Neurological: alert Internal Medicine Assmt/Plan - Assessment Assessment: ASSESSMENT: Status post recent fall with nondisplaced right inferior ramus fracture, dementia, history of falls, agitation. - Plan Plan: - Plan Plan: PLAN: Fall precautions will be initiated. Continue patient's home medications. We will continue to follow this patient. fall precaution cont on [facility] meds noted Nutritional Asmnt/Malnutr-PDOC - Dietary Evaluation Malnutrition Findings (Please click <Entered> for more info): Nutritional Asmnt/Malnutrition Start: 12/08/19 13: 59 Text: Status: Complete Freq: Protocol: Document 12/08/19 13:59 HEMANT (Rec: 12/08/19 14:01 HEMANT [id number]) Nutritional Asmnt/Malnutrition Patient General Information Nutritional Screening Moderate Risk Diagnosis Psychosis Pertinent Medical Hx/Surgical Hx Dementia, Status post fall, nondisplaced RT inferior ramus fracture Subjective Information Pt is a 79-year-old female admitted on 12/05 d/t agitation and aggressiveness. Pt is eating an estimated 70% of meals Per Meal/Nutrition Activity Record. Dietary is currently providing an estimated 1700 kcals and 90 gm Pro, per Pt PO intake this is providing an estimated 1200 kcals and 60gm Pro to meet 100 % kcal and 100% Pro needs. Anthropometrics HT: 410 WT: 138 LB (62.73 kg) ABW:107 LB (48.64 kg) BMI: 28.84 (Overweight) GI/ Skin Integrity GI: WNL, Soft, non-tender BM: Not Noted I/O: 1190/1 (+1189) Skin: WNL, Intact Jamie: 21 Diet Order: Cardiac Estimated Energy Needs: ( Geriatric, ABW) 8508-2367 kcals (25-30 kcals/ kg) 50-60g Pro (1.0-1.2 g/kg) 1965-0295 ml (25-30 ml/kg) Current Diet Order/ Nutrition Support Cardiac Pertinent Medications Maalox (PRN), Dulcolax (PRN), MOM (PRN), Theragran, Fleet Enema (PRN) Pertinent Labs 12/05: BUN/Cr 24/0.84, Glucose 104, Alb 3.2 11/29: Glucose 109, BUN/Cr 24/1 .12 Nutritional Hx/Data Height 1.47 m Height (Calculated Centimeters) 147.3 Current Weight (lbs) 62.596 kg Weight (Calculated Kilograms) 62.6 Weight (Calculated Grams) 72145.7 [place] Body Weight 96 LB (43.64 kg) % [place] Body Weight 144 Body Mass Index (BMI) 28.8 Weight Status Overweight GI Symptoms Last BM Not Noted Skin Integrity/Comment: Skin: WNL, Intact Jamie: 21 Current %PO Fair (50-74%) Estimated Nutritional Goals BEE in Kcals: Adj wt of IBW Calories/Kcals/Kg 25-30 Kcals Calculated 5912-5360 Protein: Adj wt of IBW Protein g/k.0-1.2 Protein Calculated 50-60 Fluid: ml 2753-9611 ml (25-30 ml/kg) Nutritional Problem No current Nutrition Prob Problem No nutrition diagnosis at this time. Etiology N/A Signs/Symptoms: N/A Malnutrition Related to Morbid Obesity Malnutrition related to morbid obesity No Intervention/Recommendation Comments Continue Cardiac diet as tolerated. Expected Outcomes/Goals Expected Outcomes/Goals 1.PO intake to continue to meet >75% of estimated nutritional needs. 2.Monitor PO intake, wt, nutrition related labs, and skin integrity. 3.F/U as low risk in 7-10 days , 12/15-12/18
--- NOTE | 2019-12-17 19:27 | Progress Notes ---
DATE: 12/17/2019 SUBJECTIVE: An 79-year-old female, daughter at bedside. She is very happy with mom's progress. The patient is calmer, more cooperative, still confused, disoriented, less aggressive behaviors, likely approaching her baseline. Tolerant to medications. We will have Senior Advisor contact a half-way for confirmation or disposition planning. JOB# [id number]
[2019-12-18] MEDS: Multivitamin Tab PO SCH (08:40)
[2019-12-18] MEDS: Eucerin Cream 16 oz Jar TP SCH (08:40)
[2019-12-18] MEDS: Enoxaparin 40 mg/0.4 mL 0.4mL Syr SUBQ SCH (08:41)
--- NOTE | 2019-12-18 12:18 | Discharge Summary ---
DATE OF DISCHARGE: 12/18/2019 JUSTIFICATION FOR HOSPITALIZATION: Psychotic symptoms. HISTORY OF PRESENT ILLNESS: This is an 79-year-old female with history of dementia, possibly bipolar versus schizophrenia, coming in because she was really aggressive, agitated, violent, disorganized, not making any sense, over cheondoism. PAST PSYCHIATRIC HISTORY: As noted including dementia. SOCIAL HISTORY: Coming from longterm. Daughter very involved. MEDICAL HISTORY: Noted. DIAGNOSIS UPON ADMISSION: Rule out bipolar, rule out schizophrenia, also dementia. PAST MEDICAL HISTORY: Please see full H and P. HOSPITAL COURSE: After initial assessment, the patient was admitted. Medications were adjusted, titrated. The patient is currently on dosing of Depakote. Depakote was titrated, increased. Over the course of treatment, she started to show some signs of improvement, not as agitated, much calmer, less impulsive and unpredictable. Daughter is happy with how she was doing. Staff is noting improvement, more redirectable. Fair sleep, fair appetite. Still confused on exam on day of discharge. CONDITION UPON DISCHARGE: Improved. Confused, disoriented. No SI, no HI, no overt psychotic symptoms, better impulse control. PROVISIONAL DIAGNOSES: Dementia, rule out bipolar, rule out schizophrenia. PROGNOSIS: The patient follows up with outpatient mental health services and remains compliant with treatment. Prognosis will improve, otherwise guarded. JOB# [id number]
--- NOTE | 2019-12-18 15:27 | Internal Medicine Prog Note ---
Internal Medicine Subjective - Subjective Patient seen and examined:: with staff, chart reviewed Patient is:: awake, verbal, derek chair Per staff patient has:: unstable gait, tolerating meds Internal Medicine Objective - Physical Exam Vitals and I&O: Vital Signs Temp 98.5 F 12/18/19 13:49 Pulse 69 12/18/19 13:49 Resp 18 12/18/19 13:49 BP 120/72 12/18/19 13:49 Pulse Ox 99 12/18/19 13:49 Intake & Output 12/17/19 12/18/19 12/18/19 18:59 06:59 18:59 Intake Total 120 Balance 120 Intake: Oral 120 Other: # Voids 3 3 # Bowel Movements 0 Active Medications: Current Medications Acetaminophen (Tylenol) 650 mg PO Q4H PRN PRN Reason: Pain (Mild 1-3) Stop: 02/03/20 19:08 Last Admin: 12/18/19 06:09 Dose: 650 mg Al Hydrox/Mg Hydrox/Simethicone (Maalox) 30 ml PO Q4HR PRN PRN Reason: GI DISTRESS Stop: 02/03/20 19:08 Bisacodyl (Dulcolax 10 Mg Supp) 10 mg RC Q24HR PRN PRN Reason: Constipation Stop: 02/03/20 22:19 Divalproex Sodium (Depakote Sprinkle) 250 mg PO Q12HR YAYO; Protocol Stop: 02/08/20 20:59 Last Admin: 12/18/19 08:40 Dose: 250 mg Enoxaparin Sodium (Lovenox) 40 mg SUBQ DAILY [facility] Stop: 02/04/20 08:59 Last Admin: 12/18/19 08:41 Dose: 40 mg Lorazepam (Ativan) 0.5 mg PO Q4HR PRN; Protocol PRN Reason: Anxiety Stop: 01/04/20 19:08 Last Admin: 12/17/19 01:22 Dose: 0.5 mg Magnesium Hydroxide (Milk Of Magnesia) 30 ml PO HS PRN PRN Reason: Constipation Multi-Ingredient Cream (Eucerin Cream) 1 appl TP BID [facility] Stop: 02/04/20 08:59 Last Admin: 12/18/19 08:40 Dose: 1 appl Multivitamins/Vitamin C (Theragran) 1 tab PO DAILY [facility] Stop: 02/04/20 08:59 Last Admin: 12/18/19 08:40 Dose: 1 tab Sodium Phosphate (Fleet Enema) 135 ml RC Q24HR PRN PRN Reason: bowel management Stop: 02/03/20 22:19 General: demented HEENT: NC/AT, PERRLA Neck: Supple Lungs: CTAB Cardiovascular: RRR, Normal S1, Normal S2, without murmur Abdomen: soft, non-tender, non-distended, positive bowel sound Extremities: excoriation Neurological: alert Internal Medicine Assmt/Plan - Assessment Assessment: ASSESSMENT: Status post recent fall with nondisplaced right inferior ramus fracture, dementia, history of falls, agitation. - Plan Plan: - Plan Plan: PLAN: Fall precautions will be initiated. Continue patient's home medications. We will continue to follow this patient. fall precaution cont on gerichair meds noted Nutritional Asmnt/Malnutr-PDOC - Dietary Evaluation Malnutrition Findings (Please click <Entered> for more info): Nutritional Asmnt/Malnutrition Start: 12/08/19 13: 59 Text: Status: Complete Freq: Protocol: Document 12/08/19 13:59 HEMANT (Rec: 12/08/19 14:01 HEMANT [id number]) Nutritional Asmnt/Malnutrition Patient General Information Nutritional Screening Moderate Risk Diagnosis Psychosis Pertinent Medical Hx/Surgical Hx Dementia, Status post fall, nondisplaced RT inferior ramus fracture Subjective Information Pt is a 79-year-old female admitted on 12/05 d/t agitation and aggressiveness. Pt is eating an estimated 70% of meals Per Meal/Nutrition Activity Record. Dietary is currently providing an estimated 1700 kcals and 90 gm Pro, per Pt PO intake this is providing an estimated 1200 kcals and 60gm Pro to meet 100 % kcal and 100% Pro needs. Anthropometrics HT: 410 WT: 138 LB (62.73 kg) ABW:107 LB (48.64 kg) BMI: 28.84 (Overweight) GI/ Skin Integrity GI: WNL, Soft, non-tender BM: Not Noted I/O: 1190/1 (+1189) Skin: WNL, Intact Jamie: 21 Diet Order: Cardiac Estimated Energy Needs: ( Geriatric, ABW) 6225-4861 kcals (25-30 kcals/ kg) 50-60g Pro (1.0-1.2 g/kg) 4615-7141 ml (25-30 ml/kg) Current Diet Order/ Nutrition Support Cardiac Pertinent Medications Maalox (PRN), Dulcolax (PRN), MOM (PRN), Theragran, Fleet Enema (PRN) Pertinent Labs 12/05: BUN/Cr 24/0.84, Glucose 104, Alb 3.2 11/29: Glucose 109, BUN/Cr 24/1 .12 Nutritional Hx/Data Height 1.47 m Height (Calculated Centimeters) 147.3 Current Weight (lbs) 62.596 kg Weight (Calculated Kilograms) 62.6 Weight (Calculated Grams) 85630.7 [place] Body Weight 96 LB (43.64 kg) % [place] Body Weight 144 Body Mass Index (BMI) 28.8 Weight Status Overweight GI Symptoms Last BM Not Noted Skin Integrity/Comment: Skin: WNL, Intact Jamie: 21 Current %PO Fair (50-74%) Estimated Nutritional Goals BEE in Kcals: Adj wt of IBW Calories/Kcals/Kg 25-30 Kcals Calculated 6393-3245 Protein: Adj wt of IBW Protein g/k.0-1.2 Protein Calculated 50-60 Fluid: ml 4580-4886 ml (25-30 ml/kg) Nutritional Problem No current Nutrition Prob Problem No nutrition diagnosis at this time. Etiology N/A Signs/Symptoms: N/A Malnutrition Related to Morbid Obesity Malnutrition related to morbid obesity No Intervention/Recommendation Comments Continue Cardiac diet as tolerated. Expected Outcomes/Goals Expected Outcomes/Goals 1.PO intake to continue to meet >75% of estimated nutritional needs. 2.Monitor PO intake, wt, nutrition related labs, and skin integrity. 3.F/U as low risk in 7-10 days , 12/15-12/18
== END 2019-12-18 18:00 | DRG 884 ==
LOC: GERO 18:30
PROVIDERS: ADMIT Psychiatry & Neurology Psychiatry; ATTEND Psychiatry & Neurology Psychiatry
DX: F03.90 Unspecified dementia, unspecified severity, without behavioral disturbance, psychotic disturbance, mood disturbance, and anxiety (principal); F41.9 Anxiety disorder, unspecified; F31.9 Bipolar disorder, unspecified; F20.9 Schizophrenia, unspecified
CPT/HCPCS: 83036-90; G0410; J1650; Z7610